=== PATIENT | male | born 1995 | race African-American/Black ===

== ENCOUNTER 2020-06-27 08:56 | Emergency (ER) | payer SELFPAY ==
[~2020-06-27] VITALS: Ht 170.2 cm; Wt 65.8 kg
[2020-06-27 09:00] VITALS: BP 132/70
--- NOTE | 2020-06-27 09:12 | NUR ---
ED Nurse Note: Patient from home walked in due to laceration on right facial side acquired after he was elbowed while playing basketball last night. Unable to remember last tetanus shot. Bruising and swelling noted. AAO x4 and ambulatory.
--- NOTE | 2020-06-27 09:18 | Emergency Room Report ---
History of Present Illness General Chief Complaint: Multiple Trauma/Fall Source: Patient Present Illness HPI Patient is a 25-year-old male presents for left eye laceration.. Patient denies any change in vision. Injury occurred last night approximately 7 PM. Patient presented 14 hours after injury. Denies any visual changes. Denies any diplopia or photophobia. Had some swelling to the left elbow. Patient stated occurred while playing basketball. Allergies: Coded Allergies: No Known Allergies (Unverified , 06/27/20) COVID-19 Screening Contact w/high risk pt: No Experienced COVID-19 symptoms?: No COVID-19 Testing performed SHIP OFFICER: No Patient History Past Medical History: see triage record Reviewed Nursing Documentation: PMH: Agreed; PSxH: Agreed Nursing Documentation-PMH Past Medical History: No Stated History Review of Systems All Other Systems: negative except mentioned in HPI Physical Exam Vital Signs Date Time Temp Pulse Resp B/P (MAP) Pulse Ox O2 Delivery O2 Flow Rate FiO2 06/27/20 09:00 97.9 111 16 132/70 (90) 98 Room Air General Appearance: well appearing, no apparent distress, alert, GCS 15 Head: normocephalic, atraumatic ENT: hearing grossly normal, normal voice, other - 1 cm superficial laceration to the left cheek. No erythema, no anesthesia to the left cheek no deformity noted Neck: full range of motion, supple Respiratory: no respiratory distress, speaking full sentences Gastrointestinal: normal inspection, non tender, soft Musculoskeletal: no calf tenderness Neurologic: alert, motor strength/tone normal, oriented x3, normal gait Psychiatric: mood/affect normal Skin: no rash, laceration - 1cm below left lower eyelid Procedures Laceration/Wound Repair Laceration/Wound Repair : Consent: Verbal Wound Location: face Wound's Depth, Shape: superficial Wound Length (cm): 1 Wound Explored: clean Irrigated w/ Saline (ccs): 20 Volume Anesthetic (ccs): 0 Wound Debrided: None Wound Repaired With: Steri-strips Patient Tolerated: Well Complications: None Medical Decision Making Diagnostic Impression: Primary Impression: Laceration ER Course Patient presented for laceration. Differential diagnosis include was not limited to head injury, facial fracture, wound infection among others. Patient has a benign exam and does not appear to require any imaging or laboratory testing at this time. Patient noted be awake and alert with some minimal soft tissue swelling to the left cheek. Does not appear to have any evidence of head trauma. Patient's laceration is approximate 14 hours old. Laceration was irrigated. It was loosely closed with Steri-Strips. He was given a pres cription for antibiotics.He was advised to follow-up with primary care physician for recheck. He was advised to return if any concerns. This medical record is generated with [employer] glove turner software. There may be some glove turner discrepancies related to use of this software Last Vital Signs Date Time Temp Pulse Resp B/P (MAP) Pulse Ox O2 Delivery O2 Flow Rate FiO2 06/27/20 09:06 111 16 Room Air 06/27/20 09:00 97.9 132/70 98 Scripts Cephalexin* (KEFLEX*) 500 Mg Capsule 500 MG ORAL EVERY 6 HOURS, #28 CAP Prov: Vaughn Mercer MD 06/27/20 Ibuprofen (Ibuprofen) 400 Mg Tablet 400 MG PO EVERY 8 HOURS for pain, #30 TAB Prov: Vaughn Mercer MD 06/27/20 Vaughn Mercer MD Jun 27, 2020 09:18
[2020-06-27] MEDS ORDERED: IBUPROFEN400 M1 PO (09:19)
[2020-06-27] MEDS ORDERED: CEPHALEXIN500 MG ORAL (09:22)
--- NOTE | 2020-06-27 09:30 | NUR ---
ED Nurse Note: Cleansed small laceration with saline irrigation then applied benzoin swab to wound. Covered with steri strips per ERMD order.
[2020-06-27 09:43] VITALS: BP 127/85
--- NOTE | 2020-06-27 09:43 | NUR ---
ER DISCHARGE NOTE: Patient is cleared to be discharged per ERMD, pt is aox4, on room air, with stable vital signs. pt was given dc and prescription instructions, pt was able to verbalize understanding, pt id band removed. pt is able to ambulate with steady gait. pt took all belongings.
== END 2020-06-27 09:43 | disposition home or self-care (01) ==
LOC: EMR 09:25
DX: S01.412A Laceration without foreign body of left cheek and temporomandibular area, initial encounter (principal); S01.112A Laceration without foreign body of left eyelid and periocular area, initial encounter; Y93.67 Activity, basketball; Y92.9 Unspecified place or not applicable
CPT/HCPCS: 99282

== ENCOUNTER 2020-06-27 20:03 | Emergency (ER) | payer SELFPAY ==
[~2020-06-27] VITALS: Ht 170.2 cm; Wt 65.8 kg
[~2020-06-27 20:03] MED LIST: CEPHALEXIN500 MG ORAL; IBUPROFEN400 M1 PO
--- NOTE | 2020-06-27 20:33 | Emergency Room Report ---
History of Present Illness General Chief Complaint: Wound Recheck/Suture Removal Source: Patient Present Illness HPI Disclaimer: Please note that this report is being documented using [employer] technology. This can lead to erroneous entry secondary to incorrect interpretation by the dictating instrument. HPI: 25-year-old male presents for evaluation of facial laceration. He was elbowed in the left cheek while playing basketball earlier today. Seen earlier in the ED and treated with Steri-Strips. He states the wound keeps oozing and t he Steri-Strips keep falling off. Denies reinjury. No other complaints at this time. PMH: Reviewed PSH: Reviewed Allergies: Reviewed Social Hx: Reviewed Allergies: Coded Allergies: No Known Allergies (Unverified , 06/27/20) COVID-19 Screening Contact w/high risk pt: No Experienced COVID-19 symptoms?: No COVID-19 Testing performed USABILITY ARCHITECT: No Nursing Documentation-PMH Past Medical History: No Stated History Review of Systems All Other Systems: negative except mentioned in HPI Physical Exam Vital Signs Date Time Temp Pulse Resp B/P (MAP) Pulse Ox O2 Delivery O2 Flow Rate FiO2 06/27/20 20:03 97.5 92 18 141/60 (87) 99 Room Air General: Awake and alert, no acute distress HEENT: NC/AT. EOMI. Resp: Normal work of breathing Skin: 1 cm linear clean and superficial laceration that approximates well over the left maxilla. No active bleeding. No debris noted. MSK: Normal tone and bulk. Moving all extremities. No obvious deformity. Neuro: Awake and alert. Mentating appropriately Procedures Laceration/Wound Repair Laceration/Wound Repair : Consent: Verbal Wound Location: face Wound's Depth, Shape: superficial, linear Wound Length (cm): 1 Wound Explored: clean Wound Debrided: None Wound Repaired With: sutures Suture Size/Type: 6:0, proline Number of Sutures: 3 Patient Tolerated: Well Complications: None Medical Decision Making Diagnostic Impression: Primary Impression: Encounter for re-check of laceration wound ER Course 25 oh male presents for reevaluation of facial laceration sustained earlier today. Steri-Strips are not holding. The wound was to be cleaned with soap water and irrigated. 3 simple interrupted 6-0 Prolene sutures were placed which approximated the wound well. No active bleeding. He tolerated the procedure well. The patient did this procedure without local anesthetic at his request. He is also refusing a tetanus booster at this time. No other injuries or complaints from the patient at this time. Stable for outpatient follow-up. Will return for suture removal in 3 days. Discussed reasons to return to the ED. He understands and agrees with this treatment plan. Last Vital Signs Date Time Temp Pulse Resp B/P (MAP) Pulse Ox O2 Delivery O2 Flow Rate FiO2 06/27/20 20:03 97.5 92 18 141/60 (87) 99 Room Air Disposition: HOME, SELF-CARE Condition: Stable Patient Instructions: Sutured Wound Care Additional Instructions: Return in 3 days for suture removal. Return if sutures breakdown or come out. Return with persistent bleeding. Reji Patetn MD Jun 27, 2020 20:33
[2020-06-27 20:35] VITALS: BP 141/60
== END 2020-06-27 20:35 | disposition home or self-care (01) ==
LOC: EMR 20:35
DX: S01.412A Laceration without foreign body of left cheek and temporomandibular area, initial encounter (principal); W50.0XXA Accidental hit or strike by another person, initial encounter; Y93.67 Activity, basketball; Y92.9 Unspecified place or not applicable
CPT/HCPCS: 99283

== ENCOUNTER 2020-07-01 11:54 | Emergency (ER) | payer SELFPAY ==
[~2020-07-01] VITALS: Ht 170.2 cm; Wt 65.8 kg
--- NOTE | 2020-07-01 12:15 | NUR ---
ED Nurse Note:tree sutures were removed and pt. received d/c instruction and went home condition stable
--- NOTE | 2020-07-01 12:16 | Emergency Room Report ---
History of Present Illness General Chief Complaint: Wound Recheck/Suture Removal Source: Patient Present Illness HPI Patient is a 25-year-old male denies any significant past medical history who presents to the ER for suture removal. Patient states that he was elbowed just below his left eye and had 3 sutures placed 4 days ago. Patient denies any visual changes. He denies any discharge from the laceration. She denies any fever or chills. Allergies: Coded Allergies: No Known Allergies (Unverified , 06/27/20) COVID-19 Screening Contact w/high risk pt: No Experienced COVID-19 symptoms?: No COVID-19 Testing performed MACHINE HEEL SPRAYER: No Patient History Reviewed Nursing Documentation: PMH: Agreed; PSxH: Agreed Nursing Documentation-PMH Past Medical History: No Stated History Review of Systems All Other Systems: negative except mentioned in HPI Physical Exam Vital Signs Date Time Temp Pulse Resp B/P (MAP) Pulse Ox O2 Delivery O2 Flow Rate FiO2 07/01/20 12:01 98.2 89 19 124/73 (90) 98 Room Air Sp02 EP Interpretation: reviewed, normal General Appearance: no apparent distress, alert, GCS 15, non-toxic Head: normocephalic, atraumatic Eyes: left eye other - Left periorbital ecchymosis and swelling most prominent below the left eye with a 2 cm linear laceration healing with no purulent discharge mild tenderness to palpation ENT: hearing grossly normal, moist mucus membranes Neck: full range of motion, supple/symm/no masses Respiratory: chest non-tender, lungs clear, normal breath sounds, speaking full sentences Cardiovascular #1: regular rate, rhythm, no edema Gastrointestinal: non tender, soft Rectal: deferred Musculoskeletal: normal range of motion 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 After discussing risks and benefits of further diagnostics, treatment plans, as well as indications for and risks of admission, the patient is agreeable to being discharged home. I have explained that their evaluation and treatment in the emergency department today is an important step towards them achieving better health but that their evaluation today is not intended to replace further evaluation and treatment by a physician in their local clinic. I have explained that while the current findings suggest no immediate life threatening emergency they will require further evaluation and treatment by a physician of their choice in their area. They understand that it will be necessary for them to review the final reports of their ED visit with their clinic physician. We have reviewed indications for return to the Emergency Department. I have explained that additional time may need to pass and/or additional testing as an outpatient may be necessary before a definitive diagnosis can be made. They tell me they are willing to follow up as instructed within the timeframe I recommend. They appear to understand what we discussed. Additionally they understand that if they are unable to be seen by an outpatient physician they are welcome, and in fact should, return to the Emergency Department for a repeat evaluation. The patient is stable at time of discharge. Last Vital Signs Date Time Temp Pulse Resp B/P (MAP) Pulse Ox O2 Delivery O2 Flow Rate FiO2 07/01/20 12:01 98.2 89 19 124/73 (90) 98 Room Air Disposition: HOME, SELF-CARE Condition: Stable [facility] Patient Instructions: Suture Removal, Care After Additional Instructions: The patient was provided with discharge instructions, notified to follow-up with a primary care doctor and or specialist in the next 24-48 hours, and to return to the ED if they have worsening of their symptoms. Please note that this report is being documented using [employer] technology. This can lead to erroneous entry secondary to incorrect interpretation by the dictating instrument. Adriana Sun M.D. Jul 01, 2020 12:16
[2020-07-01 12:18] VITALS: BP 124/73
== END 2020-07-01 12:30 | disposition home or self-care (01) ==
LOC: EMR 12:20
DX: Z48.02 Encounter for removal of sutures (principal); S00.12XA Contusion of left eyelid and periocular area, initial encounter; X58.XXXA Exposure to other specified factors, initial encounter; Y92.9 Unspecified place or not applicable; S01.81XA Laceration without foreign body of other part of head, initial encounter
CPT/HCPCS: 99281